=== PATIENT | female | born 1975 | race Caucasian/White ===

== ENCOUNTER 2017-04-15 08:13 | Day surgery (SDC) | payer BC ==
[~2017-04-15] VITALS: Ht 170.2 cm; Wt 93.4 kg
[2017-04-15 09:24] LABS: BASOPHILS % 0.8 % (0.0-2.0); EOSINOPHILS % 1.7 % (0.0-5.0); HEMATOCRIT. 29.3 % (36.0-48.0); HEMOGLOBIN. 9.2 g/dL (12.0-16.0); LYMPHOCYTES % 29.9 % (20.0-50.0); MEAN CORPUSCULAR HEMOGLOBIN 21.4 pg (28.0-32.0); MEAN CORPUSCULAR VOLUME 68.3 fL (81.0-99.0); MEAN PLATELET VOLUME 7.5 fl (7.4-10.4); MONOCYTES % 8.2 % (2.0-8.0); NEUTROPHILS % 59.4 % (40.0-76.0); PLATELET 285 x1000/uL (130-400); RED BLOOD CELL COUNT 4.29 mill/uL (4.2-5.4); RED CELL DISTRIBUTION WIDTH 19.4 % (11.6-14.6)
[2017-04-15 09:31] LABS: HCG SCREEN NEGATIVE
[2017-04-15 09:33] LABS: PARTIAL THROMBOPLASTIN TIME 27.5 sec (24.0-34.0); PROTHROMBIN TIME 10.5 sec
[2017-04-15 09:36] LABS: CARBON DIOXIDE 28 mEq/L (21-32); CHLORIDE 106 mEq/L (98-107)
[2017-04-15] MEDS ORDERED: LAMO200T PO (09:46)
[2017-04-15] MEDS ORDERED: CLON1TAB4 PO (09:46)
[2017-04-15] MEDS ORDERED: ASEN10TA10 SL (09:46)
[2017-04-15] MEDS ORDERED: TRAZ-132 PO (09:46)
[2017-04-15] MEDS ORDERED: METH60CP PO (09:46)
[2017-04-15] MEDS ORDERED: LISI10TA5 PO (09:46)
[2017-04-15] MEDS ORDERED: LACTATED RINGERS 1,000 ML IV SCH (10:25)
[2017-04-15 12:15] LABS: CLARITY URINE CLEAR (CLEAR); COLOR URINE YELLOW (YELLOW); GLUCOSE URINE NEGATIVE (NEGATIVE); KETONES URINE NEGATIVE (NEGATIVE); LEUKOCYTE ESTERASE URINE NEGATIVE (NEGATIVE); NITRITE URINE NEGATIVE (NEGATIVE); OCCULT BLOOD URINE NEGATIVE (NEGATIVE); PH URINE 7.5 (4.5-8.0); PROTEIN URINE NEGATIVE (NEGATIVE); SPECIFIC GRAVITY URINE 1.012 (1.005-1.030); UROBILINOGEN URINE 0.2 E.U./dL (0.2-1.0)
[2017-04-15 12:48] LABS: PLATELET ESTIMATE NORMAL
[2017-04-15] MEDS ORDERED: MIDAZOLAM HCL 2 MG/2 ML VIAL ONE (12:53)
[2017-04-15] MEDS ORDERED: FENTANYL CITRATE/PF 50MCG/ML 2ML VIAL ONE (12:53)
[2017-04-15] MEDS ORDERED: LIDOCAINE HCL 1% 20ML VIAL (Pyxis) INJ ONE (12:59)
[2017-04-15] MEDS ORDERED: CEFAZOLIN SODIUM 1000MG/VIAL ONE (12:59)
[2017-04-15] MEDS ORDERED: ONDANSETRON HCL 4MG/2ML VIAL ONE (12:59)
[2017-04-15] MEDS ORDERED: SODIUM CHLORIDE 0.9% 10ML VIAL ONE (12:59)
[2017-04-15] MEDS ORDERED: PROPOFOL 200MG/20ML VIAL IV ONE (12:59)
[2017-04-15] MEDS ORDERED: DEXAMETHASONE 4MG/ML 1ML VIAL ONE (12:59)
[2017-04-15] MEDS ORDERED: MEPERIDINE HCL/PF 25MG/ML CPJ IV PRN (13:00)
[2017-04-15] MEDS ORDERED: ONDANSETRON HCL 4MG/2ML VIAL IV PRN (13:00)
[2017-04-15] MEDS ORDERED: LABETALOL HCL 20MG/4ML CARPUJECT IV PRN (13:00)
[2017-04-15] MEDS: HYDROMORPHONE HCL/PF 2MG/ML CPJ IV PRN ×2 (14:00→14:09)
[2017-04-15 14:09] VITALS: BP 125/71
== END 2017-04-15 15:45 | disposition home or self-care (01) ==
LOC: OR 08:13
PROVIDERS: ATTEND Obstetrics & Gynecology Obstetrics
DX: N84.0 Polyp of corpus uteri (principal); T83.39XA Other mechanical complication of intrauterine contraceptive device, initial encounter; Y65.8 Other specified misadventures during surgical and medical care; Y92.89 Other specified places as the place of occurrence of the external cause; D64.9 Anemia, unspecified; Z98.84 Bariatric surgery status
CPT/HCPCS: 36415; 58558; 58562; 80048; 81003; 84703; 85025; 85610; 85730; 86850; 86870; 86900; 86901; 88300; 88305; A4216; J0690; J1100; J1170; J2250; J2405; J3010; J3490; J7120; J2704

== ENCOUNTER → 2017-10-16 | Outpatient (CLI) | payer BC ==
[~2017-10-16] MED LIST: ASEN10TA10 SL; CLON1TAB4 PO; LAMO200T PO; LISI10TA5 PO; METH60CP PO; TRAZ-132 PO
[2017-10-16 18:04] LABS: BASOPHILS % 0.5 % (0.0-2.0); EOSINOPHILS % 2.5 % (0.0-5.0); HEMATOCRIT. 38.4 % (36.0-48.0); HEMOGLOBIN. 12.6 g/dL (12.0-16.0); LYMPHOCYTES % 34.7 % (20.0-50.0); MEAN CORPUSCULAR HEMOGLOBIN 26.7 pg (28.0-32.0); MEAN CORPUSCULAR VOLUME 81.7 fL (81.0-99.0); MEAN PLATELET VOLUME 7.8 fl (7.4-10.4); MONOCYTES % 6.1 % (2.0-8.0); NEUTROPHILS % 56.2 % (40.0-76.0); PLATELET 234 x1000/uL (130-400); RED CELL DISTRIBUTION WIDTH 30.9 % (11.6-14.6)
[2017-10-16 18:34] LABS: PLATELET ESTIMATE NORMAL
== END | disposition home or self-care (01) ==
LOC: LAB 16:00
PROVIDERS: ATTEND Internal Medicine Hematology & Oncology
DX: M25.532 Pain in left wrist (principal); M25.531 Pain in right wrist
CPT/HCPCS: 36415; 73110; 82728; 85025

== ENCOUNTER → 2018-01-20 | Outpatient (CLI) | payer BC | END | disposition home or self-care (01) | LOC: LAB 16:44 | PROVIDERS: ATTEND Obstetrics & Gynecology Obstetrics | DX: N95.1 Menopausal and female climacteric states (principal); N97.9 Female infertility, unspecified | CPT/HCPCS: 82672; 83520 ==